=== PATIENT | female | born 1940 | race Caucasian/White ===

== ENCOUNTER 2017-03-28 16:19 | Inpatient (IN) | payer OTHER ==
[~2017-03-28] VITALS: Ht 152.4 cm; Wt 79.0 kg
[~2017-03-28 16:19] MED LIST: GLU500 PO
[2017-03-28 17:16] LABS: BASOPHIL % 1.6 % (0-2); PLATELET COUNT 258 x10^3mcL (130-400); RED CELL DISTRIBUTION WIDTH 13.6 % (11.5-14.5)
[2017-03-28] MEDS ORDERED: METFORMIN HYDR500 M1 PO (17:18)
[2017-03-28] MEDS ORDERED: GLYBURIDE2.5 MG PO (17:19)
[2017-03-28 17:26] LABS: CALCIUM 8.9 mg/dL (8.5-10.1); CHLORIDE SERUM 98 mmol/L (98-107); CREATININE SERUM 1.2 mg/dL (0.6-1.0); GLUCOSE SERUM 126 mg/dL (74-106); POTASSIUM SERUM 3.9 mmol/L (3.5-5.1); SODIUM SERUM 130 mmol/L (136-145)
[2017-03-28 17:38] LABS: ALKALINE PHOSPHATASE 93 U/L (46-116); ALT/SGPT 19 U/L (14-59); AST/SGOT 20 U/L (15-37); BILIRUBIN TOTAL 0.75 mg/dL (0.20-1.00); TOTAL PROTEIN, SERUM 7.9 g/dL (6.4-8.2)
[2017-03-28 17:40] LABS: CK-MB 1.6 ng/mL (0-3.6)
[2017-03-28 18:42] LABS: CHOLESTEROL/HDL RATIO 3.1; MAGNESIUM 1.5 mg/dL (1.8-2.4); PHOSPHOROUS 3.2 mg/dL (2.5-4.9)
[2017-03-28 18:53] LABS: FREE T4 1.18 ng/dL (0.76-1.46); FREE THYROXINE INDEX 3.1 ug/dL (1.4-4.5); T3 TOTAL 0.97 ng/mL; T4(THYROXINE) 8.6 ug/dL (4.7-13.3)
[2017-03-28 20:19] VITALS: BP 104/65
[2017-03-29 06:20] VITALS: BP 105/52
[2017-03-29 06:46] LABS: CARBON DIOXIDE 27.2 mmol/L (21-32); CHLORIDE SERUM 106 mmol/L (98-107); CREATININE SERUM 1.3 mg/dL (0.6-1.0); GLUCOSE SERUM 225 mg/dL (74-106); POTASSIUM SERUM 4.8 mmol/L (3.5-5.1); SODIUM SERUM 141 mmol/L (136-145)
[2017-03-29 07:04] LABS: BASOPHIL % 0.4 % (0-2); PLATELET COUNT 219 x10^3mcL (130-400); RED CELL DISTRIBUTION WIDTH 13.9 % (11.5-14.5)
[2017-03-29 08:32] LABS: microscopic required? YES; urine erythrocyte TRACE (NEGATIVE)
[2017-03-29 08:55] LABS: AMPHETAMINE QUAL UR NONE DETECTED (NEG <=1000)
[2017-03-29 09:20] VITALS: BP 106/50; BP 165/66
[2017-03-29 13:56] VITALS: BP 110/60
[2017-03-29 16:38] VITALS: BP 109/49
[2017-03-29 16:47] VITALS: Ht 152.4 cm; Wt 79.0 kg
[2017-03-29 20:41] VITALS: BP 97/51
[2017-03-30 05:56] VITALS: BP 108/56
[2017-03-30 07:52] LABS: BASOPHIL % 0.4 % (0-2); PLATELET COUNT 197 x10^3mcL (130-400); RED CELL DISTRIBUTION WIDTH 13.9 % (11.5-14.5)
[2017-03-30 08:04] LABS: CALCIUM 7.7 mg/dL (8.5-10.1); CARBON DIOXIDE 26.3 mmol/L (21-32); CHLORIDE SERUM 104 mmol/L (98-107); CREATININE SERUM 1.1 mg/dL (0.6-1.0); GLUCOSE SERUM 136 mg/dL (74-106); PHOSPHOROUS 2.9 mg/dL (2.5-4.9); POTASSIUM SERUM 4.1 mmol/L (3.5-5.1); SODIUM SERUM 138 mmol/L (136-145)
[2017-03-30 08:55] VITALS: BP 120/56
[2017-03-30 13:52] VITALS: BP 126/56
[2017-03-30 18:14] VITALS: BP 139/63
[2017-03-30 21:38] VITALS: BP 112/45
[2017-03-31 05:12] VITALS: BP 135/56
[2017-03-31] MEDS ORDERED: LEVAQUIN750 MG PO (05:20)
[2017-03-31] MEDS ORDERED: LAC PO (05:21)
[2017-03-31] MEDS ORDERED: CLEOCIN HCL300 MG PO (05:21)
[2017-03-31] MEDS ORDERED: NEU100 PO (05:22)
[2017-03-31 07:18] LABS: BASOPHIL % 0.6 % (0-2); PLATELET COUNT 240 x10^3mcL (130-400); RED CELL DISTRIBUTION WIDTH 14.2 % (11.5-14.5)
[2017-03-31 07:27] LABS: CARBON DIOXIDE 25.5 mmol/L (21-32); CHLORIDE SERUM 104 mmol/L (98-107); GLUCOSE SERUM 139 mg/dL (74-106); MAGNESIUM 1.7 mg/dL (1.8-2.4); PHOSPHOROUS 3.3 mg/dL (2.5-4.9); POTASSIUM SERUM 4.4 mmol/L (3.5-5.1); SODIUM SERUM 139 mmol/L (136-145)
[2017-03-31 08:41] VITALS: BP 150/75
[2017-03-31 13:47] VITALS: BP 150/75
[2017-03-31 17:15] VITALS: BP 113/45
== END 2017-03-31 19:17 | disposition home health service (06) | DRG 623 ==
LOC: ED 16:19 → DU 17:07 → MU 03-30 17:41
PROVIDERS: Emergency Medicine; Family Medicine; Family Medicine Sports Medicine
PROC: 0JBR0ZZ Excision of Left Foot Subcutaneous Tissue and Fascia, Open Approach (ICD-10-PCS; principal; 2017-03-29)
DX: E11.628 Type 2 diabetes mellitus with other skin complications (principal); L03.116 Cellulitis of left lower limb; L97.421 Non-pressure chronic ulcer of left heel and midfoot limited to breakdown of skin; E87.1 Hypo-osmolality and hyponatremia; A52.16 Charcot's arthropathy (tabetic); E11.42 Type 2 diabetes mellitus with diabetic polyneuropathy; E11.621 Type 2 diabetes mellitus with foot ulcer; E11.51 Type 2 diabetes mellitus with diabetic peripheral angiopathy without gangrene; E11.65 Type 2 diabetes mellitus with hyperglycemia; E83.42 Hypomagnesemia; Z79.84 Long term (current) use of oral hypoglycemic drugs; Z68.31 Body mass index [BMI] 31.0-31.9, adult
CPT/HCPCS: 82962; 83880; 84439; 97110-GP; J1644; J1956; J2405; J3475; J3490; J7030; Q0092